=== PATIENT | female | born 1955 | race Caucasian/White ===

== ENCOUNTER 2018-07-20 07:22 | Emergency (ER) | payer SELFPAY ==
--- NOTE | 2018-07-20 08:08 | ER Document Report ---
HPI - HPI Patient complains to provider of: Hernia Onset: Yesterday Onset/Duration: Persistent Quality of pain: Achy Pain Level: 5 Context: Patient states that she has a left inguinal hernia that she was unable to reduce last night. Patient states that the pain made her nauseous and she vomited 4 times yesterday. Patient states the pain is not as severe today but the hernia has not gone down. Patient denies any fever. Associated Symptoms: Vomiting - Yesterday, Other - Left inguinal pain. denies: Fever Exacerbated by: Movement Relieved by: Denies Similar symptoms previously: Yes Recently seen / treated by doctor: No - ROS ROS below otherwise negative: Yes Systems Reviewed and Negative: Yes All other systems reviewed and negative - CONSTITUTIONAL Constitutional: DENIES: Fever - GASTROINTESTINAL Gastrointestinal: REPORTS: Nausea, Patient vomiting - URINARY Urinary: DENIES: Dysuria - MUSCULOSKELETAL Musculoskeletal: REPORTS: Extremity pain - Left inguinal hernia - DERM Skin Color: Normal Skin Problems: None Past Medical History - General Information source: Patient - Social History Smoking Status: Current Every Day Smoker Smoking Education Provided: Yes Frequency of alcohol use: None Drug Abuse: None Occupation: None Lives with: Spouse/Significant other Family History: Reviewed & Not Pertinent Patient has suicidal ideation: No Patient has homicidal ideation: No Neurological Medical History: Reports: Hx Cerebrovascular Accident Renal/ Medical History: Denies: Hx Peritoneal Dialysis Surgical Hx: Negative Vertical Provider Document - CONSTITUTIONAL Agree With Documented VS: Yes Exam Limitations: No Limitations General Appearance: WD/WN, No Apparent Distress - INFECTION CONTROL TRAVEL OUTSIDE OF THE [place] IN LAST 30 DAYS: No - HEENT HEENT: Atraumatic, Normocephalic - NECK Neck: Normal Inspection - RESPIRATORY Respiratory: Breath Sounds Normal, No Respiratory Distress - CARDIOVASCULAR Cardiovascular: Regular Rate, Regular Rhythm - GI/ABDOMEN Gastrointestinal: Abdomen Soft, Abdomen Non-Tender, No Organomegaly, Normal Bowel Sounds - BACK Back: Normal Inspection - MUSCULOSKELETAL/EXTREMETIES Musculoskeletal/Extremeties: MAEW, Tender - Tender left inguinal hernia - NEURO Level of Consciousness: Awake, Alert, Appropriate Motor/Sensory: No Motor Deficit - DERM Integumentary: Warm, Dry Course - Re-evaluation Re-evalutation: 07/20/18 08:07 Patient placed in Trendelenburg and hernia was reduced with gentle palpation. Patient tolerated reduction without complication. Patient states tenderness improved. Patient denies any nausea or vomiting. Consult with Dr. Salgado regarding patient presentation and plan of care. Agrees with discharge plan of care at this time. Patient's hernia able to be reduced. Pain is improved at this time. Patient has not had any vomiting for the past 4 hours. Patient afebrile. - Vital Signs Vital signs: Temp Pulse Resp BP Pulse Ox 97.8 F 87 15 123/62 98 07/20/18 07:07/20/18 07:07/20/18 07:07/20/18 07:07/20/18 07:28 Discharge - Discharge Clinical Impression: Inguinal hernia Qualifiers: Obstruction and gangrene presence: without obstruction or gangrene Laterality: unilateral Recurrence: recurrent Qualified Code(s): K40.91 - Unilateral inguinal hernia, without obstruction or gangrene, recurrent Condition: Stable Disposition: HOME, SELF-CARE Instructions: Hernia ([facility]) Additional Instructions: Return immediately for any new or worsening symptoms Followup with your primary care provider, call tomorrow to make a followup appointment Follow-up with a general surgeon for definitive management of your hernia Forms: Smoking Cessation Education Referrals: [facility] [Provider Group] - Follow up as needed
[2018-07-20 08:48] VITALS: BP 114/81
== END 2018-07-20 09:06 | disposition home or self-care (01) ==
LOC: ER 07:22
DX: K40.91 Unilateral inguinal hernia, without obstruction or gangrene, recurrent (principal); R11.2 Nausea with vomiting, unspecified; F17.200 Nicotine dependence, unspecified, uncomplicated
CPT/HCPCS: 99283